=== PATIENT | female | born 1980 | race African-American/Black ===

== ENCOUNTER 2019-12-22 13:09 | Emergency (ER) | payer SELFPAY ==
[~2019-12-22] VITALS: Ht 160 cm; Wt 85.0 kg
[2019-12-22 13:24] VITALS: BP 156/79
[2019-12-22] MEDS ORDERED: METF-414 PO (13:33)
== END 2019-12-22 14:07 | disposition home or self-care (01) ==
LOC: ER 13:09
DX: R73.9 Hyperglycemia, unspecified (principal); F12.10 Cannabis abuse, uncomplicated; Z98.890 Other specified postprocedural states; Z91.040 Latex allergy status; Z91.041 Radiographic dye allergy status
CPT/HCPCS: 82962; 99281; 99282

== ENCOUNTER 2021-03-05 15:10 | Inpatient (IN) | payer OTHER ==
[~2021-03-05] VITALS: Ht 162.6 cm; Wt 84.4 kg
[~2021-03-05 15:10] MED LIST: METF-414 PO
[2021-03-05] MEDS ORDERED: SODIUM CHLORIDE 0.9% 1,000 ML IV ONE (21:00)
[2021-03-05 21:11] LABS: CLARITY URINE CLEAR (CLEAR); COLOR URINE YELLOW (YELLOW); KETONES URINE 1+ (NEGATIVE); LEUKOCYTE ESTERASE URINE NEGATIVE (NEGATIVE); NITRITE URINE NEGATIVE (NEGATIVE); OCCULT BLOOD URINE 3+ (NEGATIVE); PH URINE 5.5 (4.5-8.0); PROTEIN URINE NEGATIVE (NEGATIVE); SPECIFIC GRAVITY URINE 1.029 (1.005-1.030); UROBILINOGEN URINE 0.2 E.U./dL (0.2-1.0)
[2021-03-05 22:13] LABS: BASOPHILS % 1.1 % (0.0-2.0); EOSINOPHILS % 0.4 % (0.0-5.0); HEMATOCRIT. 41.8 % (36.0-48.0); HEMOGLOBIN. 14.5 g/dL (12.0-16.0); LYMPHOCYTES % 34.5 % (20.0-50.0); MEAN CORPUSCULAR HEMOGLOBIN 28.5 pg (28.0-32.0); MEAN CORPUSCULAR VOLUME 82.3 fL (81.0-99.0); MEAN PLATELET VOLUME 9.4 fl (7.4-10.4); MONOCYTES % 4.6 % (2.0-8.0); NEUTROPHILS % 59.4 % (40.0-76.0); PLATELET 311 x1000/uL (130-400); RED BLOOD CELL COUNT 5.08 mill/uL (4.2-5.4); RED CELL DISTRIBUTION WIDTH 13.6 % (11.6-14.6)
[2021-03-05 22:15] LABS: CHLORIDE 103 mEq/L (98-107)
[2021-03-05 22:23] LABS: BETA HYDROXYBUTYRATE 0.9 mMol/L (0.0-0.3)
[2021-03-05] MEDS ORDERED: INSULIN REGULAR (HUMULIN R) UD 100 UNITS/ML SYR SUBCUT NR (22:30)
[2021-03-05] MEDS ORDERED: INSULIN REGULAR (HUMULIN R) 300UNITS/3ML VIAL SUBCUT NR (23:00)
[2021-03-06 00:53] LABS: HCG SCREEN NEGATIVE
[2021-03-06] MEDS ORDERED: METF-414 MT (05:26)
[2021-03-06] MEDS ORDERED: SERT25TA MT (05:26)
[2021-03-06 05:28] VITALS: BP 135/90
[2021-03-06] MEDS ORDERED: DEXTROSE 50% WATER 50ML SYRINGE IV PRN (06:30)
[2021-03-06] MEDS: BLOOD SUGAR DIAGNOSTIC STRIP TEST SCH ×4 (07:32→21:26)
[2021-03-06] MEDS: INSULIN LISPRO 100 UNITS/ML SUBCUT SCH ×4 (07:42→22:01)
[2021-03-06] MEDS ORDERED: METFORMIN HCL 500MG TABLET PO SCH (07:50)
[2021-03-06 08:00] VITALS: BP 113/73
[2021-03-06] MEDS: BENAZEPRIL 10MG TABLET PO SCH (09:26)
[2021-03-06] MEDS: INSULIN GLARGINE UD 100 UNITS/ML SYR SUBCUT SCH ×2 (10:56→22:01)
[2021-03-06 11:36] LABS: CHLORIDE 108 mEq/L (98-107)
[2021-03-06 11:48] LABS: BASOPHILS % 0.5 % (0.0-2.0); EOSINOPHILS % 0.8 % (0.0-5.0); HEMATOCRIT. 40.1 % (36.0-48.0); HEMOGLOBIN. 13.7 g/dL (12.0-16.0); LDL CHOLESTEROL 141 mg/dL (5-100); LYMPHOCYTES % 33.2 % (20.0-50.0); MEAN CORPUSCULAR HEMOGLOBIN 28.5 pg (28.0-32.0); MEAN CORPUSCULAR VOLUME 83.6 fL (81.0-99.0); MEAN PLATELET VOLUME 9.6 fl (7.4-10.4); NEUTROPHILS % 60.5 % (40.0-76.0); PLATELET 288 x1000/uL (130-400); RED CELL DISTRIBUTION WIDTH 13.6 % (11.6-14.6)
[2021-03-06 11:53] LABS: HDL CHOLESTEROL 29 mg/dL (40-59)
[2021-03-06] MEDS ORDERED: POTASSIUM CHLORIDE 20MEQ TABLET SR PO NR (13:45)
[2021-03-06] MEDS: ACETAMINOPHEN 325MG TABLET PO PRN ×2 (13:56→21:58)
[2021-03-06] MEDS: SERTRALINE HCL 25MG TABLET PO SCH (16:27)
[2021-03-06 18:00] VITALS: BP 111/61
[2021-03-06] MEDS: METFORMIN HCL 500MG TABLET PO SCH (18:14)
[2021-03-06] MEDS: PSYLLIUM SEED PACKET PO SCH (18:15)
[2021-03-06] MEDS ORDERED: ATORVASTATIN CALCIUM 20MG TABLET PO SCH ×2 (21:00)
[2021-03-07 00:16] VITALS: BP 115/67
[2021-03-07] MEDS: SODIUM CHLORIDE 0.9% 1,000 ML IV SCH ×2 (03:04→12:46)
[2021-03-07 04:00] VITALS: BP 114/68
[2021-03-07] MEDS: BLOOD SUGAR DIAGNOSTIC STRIP TEST SCH ×3 (06:28→17:13)
[2021-03-07 07:31] LABS: CHLORIDE 107 mEq/L (98-107)
[2021-03-07 08:00] VITALS: BP 108/72
[2021-03-07] MEDS: METFORMIN HCL 500MG TABLET PO SCH ×2 (08:49→17:19)
[2021-03-07] MEDS: PSYLLIUM SEED PACKET PO SCH ×2 (08:49→17:19)
[2021-03-07] MEDS: INSULIN LISPRO 100 UNITS/ML SUBCUT SCH ×3 (08:50→17:20)
[2021-03-07] MEDS: SERTRALINE HCL 25MG TABLET PO SCH (08:52)
[2021-03-07] MEDS: BENAZEPRIL 10MG TABLET PO SCH (09:00)
[2021-03-07] MEDS: ACETAMINOPHEN 325MG TABLET PO PRN (09:08)
[2021-03-07] MEDS ORDERED: INSU100I28 SQ (09:45)
[2021-03-07] MEDS ORDERED: ATOR20TA MT (09:46)
[2021-03-07] MEDS: INSULIN GLARGINE UD 100 UNITS/ML SYR SUBCUT SCH (10:30)
[2021-03-07] MEDS ORDERED: DEXTROSE 50% WATER 50ML SYRINGE IV PRN (10:45)
[2021-03-07 12:00] VITALS: BP 120/82
[2021-03-07] MEDS ORDERED: INSULIN LISPRO 100 UNITS/ML SUBCUT SCH (12:20)
[2021-03-07] MEDS: INSULIN LISPRO (LOW DOSE) 100 UNITS/ML SUBCUT SCH ×2 (12:23→17:14)
[2021-03-07 16:00] VITALS: BP 114/80
[2021-03-07 16:27] VITALS: BP 114/80
[2021-03-07] MEDS ORDERED: INSULIN GLARGINE UD 100 UNITS/ML SYR SUBCUT SCH (22:00)
== END 2021-03-07 17:40 | disposition home or self-care (01) | DRG 639 ==
LOC: ER 15:25 → MICUSO 03-06 00:19 → EDBEDREQDT 03-06 00:29 → EDBEDREQ 03-06 00:29 → EDBEDREQTM 03-06 00:29 → 6EST 03-06 04:31
PROVIDERS: ADMIT Internal Medicine; ATTEND Internal Medicine
DX: E11.10 Type 2 diabetes mellitus with ketoacidosis without coma (principal); E66.9 Obesity, unspecified; E78.5 Hyperlipidemia, unspecified; R31.9 Hematuria, unspecified; E83.52 Hypercalcemia; R19.7 Diarrhea, unspecified; F41.9 Anxiety disorder, unspecified; F32.9 Major depressive disorder, single episode, unspecified; Z79.4 Long term (current) use of insulin; Z82.49 Family history of ischemic heart disease and other diseases of the circulatory system; Z83.3 Family history of diabetes mellitus; Z86.32 Personal history of gestational diabetes; Z98.51 Tubal ligation status; Z88.1 Allergy status to other antibiotic agents; Z91.041 Radiographic dye allergy status; Z91.040 Latex allergy status; Z71.3 Dietary counseling and surveillance; Z68.31 Body mass index [BMI] 31.0-31.9, adult; Z86.19 Personal history of other infectious and parasitic diseases
CPT/HCPCS: 36415; 80048; 80053; 80061; 81003; 82010; 82962; 83036; 84703; 85025; 99285; J1815; J7030; J7040

== ENCOUNTER 2021-08-13 05:36 | Inpatient (IN) | payer OTHER ==
[~2021-08-13] VITALS: Ht 157.5 cm; Wt 88.5 kg
[~2021-08-13 05:36] MED LIST changes: +ATOR20TA MT; +INSU100I28 SQ; +METF-414 MT; +SERT25TA MT
[2021-08-13] MEDS ORDERED: MORPHINE SULFATE 4 MG/ML CPJ (NOT FOR IM USE) IV ONE ×3 (06:45→12:45)
[2021-08-13 06:54] LABS: BASOPHILS % 0.4 % (0.0-2.0); EOSINOPHILS % 0.6 % (0.0-5.0); HEMATOCRIT. 38.2 % (36.0-48.0); LYMPHOCYTES % 14.3 % (20.0-50.0); MEAN CORPUSCULAR HEMOGLOBIN 28.9 pg (28.0-32.0); MEAN PLATELET VOLUME 8.6 fl (7.4-10.4); MONOCYTES % 2.5 % (2.0-8.0); NEUTROPHILS % 82.2 % (40.0-76.0); PLATELET 281 x1000/uL (130-400); RED BLOOD CELL COUNT 4.49 mill/uL (4.2-5.4); RED CELL DISTRIBUTION WIDTH 13.2 % (11.6-14.6)
[2021-08-13 07:09] LABS: CHLORIDE 105 mEq/L (98-107)
[2021-08-13 07:16] LABS: HCG SCREEN NEGATIVE
[2021-08-13 13:30] VITALS: BP 135/81
[2021-08-13 15:18] VITALS: BP 135/81
[2021-08-13] MEDS ORDERED: INSU100I28 SQ (15:41)
[2021-08-13] MEDS ORDERED: SERT25TA PO (15:42)
[2021-08-13] MEDS ORDERED: IBUP-2029 PO (15:42)
[2021-08-13] MEDS ORDERED: DULA0.75 SQ (15:42)
[2021-08-13] MEDS ORDERED: FLUT9.9S NS (15:45)
[2021-08-13 16:00] VITALS: BP 124/74
[2021-08-13] MEDS ORDERED: ZOLPIDEM TARTRATE 5MG TABLET PO PRN (17:30)
[2021-08-13] MEDS ORDERED: MAGNESIUM/ALUMINUM HYDROXIDE/SIMETHICONE 30ML UDC PO PRN (17:30)
[2021-08-13] MEDS ORDERED: DIPHENHYDRAMINE 50MG/ML VIAL IV PRN (17:30)
[2021-08-13] MEDS ORDERED: ACETAMINOPHEN 325MG TABLET PO PRN (17:30)
[2021-08-13] MEDS ORDERED: CLONIDINE 0.1MG TABLET PO PRN (17:30)
[2021-08-13] MEDS ORDERED: DEXTROSE 50% WATER 50ML SYRINGE IV PRN (17:30)
[2021-08-13] MEDS: BLOOD SUGAR DIAGNOSTIC STRIP TEST SCH ×2 (18:09→20:46)
[2021-08-13] MEDS: INSULIN LISPRO 100 UNITS/ML SUBCUT SCH ×2 (18:09→20:45)
[2021-08-13] MEDS: PANTOPRAZOLE SODIUM 40 MG/VIAL IV SCH (18:09)
[2021-08-13] MEDS: KETOROLAC 30MG/ML VIAL IV PRN (18:10)
[2021-08-13] MEDS: SODIUM CHLORIDE 0.9% 1,000 ML IV SCH (18:15)
[2021-08-13 20:00] VITALS: BP 120/70
[2021-08-13] MEDS ORDERED: BLOOD SUGAR DIAGNOSTIC STRIP TEST SCH (21:00)
[2021-08-13] MEDS: ACETAMINOPHEN 325MG TABLET PO PRN (21:15)
[2021-08-13] MEDS: ONDANSETRON HCL 4MG/2ML INJ IV PRN (21:23)
[2021-08-13] MEDS ORDERED: NALOXONE HCL 0.4 MG/ML 1ML VIAL IV PRN (22:00)
[2021-08-13] MEDS: MORPHINE SULFATE 2 MG/ML CPJ (NOT FOR IM USE) IV PRN (22:02)
[2021-08-14] VITALS: BP 122/71
[2021-08-14 01:53] LABS: CLARITY URINE CLEAR (CLEAR); COLOR URINE DARK YELLOW (YELLOW); KETONES URINE NEGATIVE (NEGATIVE); LEUKOCYTE ESTERASE URINE TRACE (NEGATIVE); NITRITE URINE NEGATIVE (NEGATIVE); OCCULT BLOOD URINE 3+ (NEGATIVE); PH URINE 5.5 (4.5-8.0); PROTEIN URINE 1+ (NEGATIVE); SPECIFIC GRAVITY URINE 1.018 (1.005-1.030)
[2021-08-14 01:58] LABS: UCG SCREEN NEGATIVE
[2021-08-14 02:04] LABS: *AMPHETAMINES SCREEN URINE NEGATIVE (NEGATIVE); *BARBITURATES SCREEN URINE NEGATIVE (NEGATIVE); *BENZODIAZEPINES SCREEN URINE NEGATIVE (NEGATIVE); *COCAINE SCREEN URINE NEGATIVE (NEGATIVE); METHADONE URINE SCREEN NEGATIVE (NEGATIVE)
[2021-08-14 02:05] LABS: PHENCYCLIDINE URINE SCREEN NEGATIVE (NEGATIVE)
[2021-08-14 02:39] LABS: CANNABINOID URINE SCREEN PRESUMTIVE POSITIVE (NEGATIVE); OPIATES URINE SCREEN PRESUMTIVE POSITIVE (NEGATIVE)
[2021-08-14 04:00] VITALS: BP 120/72
[2021-08-14] MEDS: MORPHINE SULFATE 2 MG/ML CPJ (NOT FOR IM USE) IV PRN ×2 (05:02→15:38)
[2021-08-14] MEDS: ONDANSETRON HCL 4MG/2ML INJ IV PRN ×2 (05:09→21:21)
[2021-08-14] MEDS: SODIUM CHLORIDE 0.9% 1,000 ML IV SCH ×3 (06:32→21:21)
[2021-08-14] MEDS: BLOOD SUGAR DIAGNOSTIC STRIP TEST SCH ×4 (07:20→21:00)
[2021-08-14] MEDS: INSULIN LISPRO 100 UNITS/ML SUBCUT SCH ×4 (07:50→21:00)
[2021-08-14 08:00] VITALS: BP 119/86
[2021-08-14] MEDS: ACETAMINOPHEN 325MG TABLET PO PRN ×2 (08:46→21:20)
[2021-08-14] MEDS: PANTOPRAZOLE SODIUM 40 MG/VIAL IV SCH (08:46)
[2021-08-14 10:22] LABS: CHLORIDE 106 mEq/L (98-107)
[2021-08-14 10:25] LABS: BASOPHILS % 0.7 % (0.0-2.0); EOSINOPHILS % 0.6 % (0.0-5.0); HEMATOCRIT. 38.5 % (36.0-48.0); LYMPHOCYTES % 21.1 % (20.0-50.0); MEAN CORPUSCULAR HEMOGLOBIN 28.9 pg (28.0-32.0); MEAN CORPUSCULAR VOLUME 85.7 fL (81.0-99.0); MEAN PLATELET VOLUME 9.5 fl (7.4-10.4); MONOCYTES % 3.6 % (2.0-8.0); PLATELET 276 x1000/uL (130-400); RED CELL DISTRIBUTION WIDTH 13.2 % (11.6-14.6)
[2021-08-14 12:00] VITALS: BP 122/75
[2021-08-14 16:00] VITALS: BP 120/81
[2021-08-14 17:41] LABS: AMYLASE 48 IU/L (25-115)
[2021-08-14 20:00] VITALS: BP 116/71
[2021-08-15] VITALS: BP 129/76
[2021-08-15] MEDS: MORPHINE SULFATE 2 MG/ML CPJ (NOT FOR IM USE) IV PRN ×3 (00:23→22:02)
[2021-08-15 04:00] VITALS: BP 114/74
[2021-08-15 07:24] LABS: BASOPHILS % 0.6 % (0.0-2.0); EOSINOPHILS % 1.4 % (0.0-5.0); HEMATOCRIT. 34.8 % (36.0-48.0); HEMOGLOBIN. 12.1 g/dL (12.0-16.0); LYMPHOCYTES % 24.2 % (20.0-50.0); MEAN CORPUSCULAR HEMOGLOBIN 29.7 pg (28.0-32.0); MEAN PLATELET VOLUME 9.3 fl (7.4-10.4); MONOCYTES % 4.1 % (2.0-8.0); NEUTROPHILS % 69.7 % (40.0-76.0); PLATELET 244 x1000/uL (130-400); RED BLOOD CELL COUNT 4.09 mill/uL (4.2-5.4); RED CELL DISTRIBUTION WIDTH 13.6 % (11.6-14.6)
[2021-08-15 07:43] LABS: CHLORIDE 109 mEq/L (98-107)
[2021-08-15] MEDS: INSULIN LISPRO 100 UNITS/ML SUBCUT SCH ×4 (07:50→21:50)
[2021-08-15] MEDS: BLOOD SUGAR DIAGNOSTIC STRIP TEST SCH ×4 (07:54→21:41)
[2021-08-15 07:59] LABS: AMYLASE 45 IU/L (25-115)
[2021-08-15 08:00] VITALS: BP 113/72
[2021-08-15 08:03] LABS: HEPATITIS B SURFACE ANTIGEN NEGATIVE
[2021-08-15] MEDS: PANTOPRAZOLE SODIUM 40 MG/VIAL IV SCH (08:46)
[2021-08-15] MEDS: SODIUM CHLORIDE 0.9% 1,000 ML IV SCH ×2 (08:52→20:15)
[2021-08-15] MEDS: ONDANSETRON HCL 4MG/2ML INJ IV PRN ×3 (08:58→22:23)
[2021-08-15] MEDS: ACETAMINOPHEN 325MG TABLET PO PRN (11:44)
[2021-08-15 12:00] VITALS: BP 113/70
[2021-08-15 16:00] VITALS: BP 124/85
[2021-08-15 20:00] VITALS: BP 115/66
[2021-08-16] MEDS: SODIUM CHLORIDE 0.9% 1,000 ML IV SCH ×2 (06:15→16:15)
[2021-08-16 07:02] LABS: BASOPHILS % 0.8 % (0.0-2.0); EOSINOPHILS % 1.6 % (0.0-5.0); HEMATOCRIT. 35.1 % (36.0-48.0); HEMOGLOBIN. 12.2 g/dL (12.0-16.0); MEAN CORPUSCULAR HEMOGLOBIN 29.6 pg (28.0-32.0); MEAN CORPUSCULAR VOLUME 85.1 fL (81.0-99.0); MEAN PLATELET VOLUME 9.1 fl (7.4-10.4); MONOCYTES % 6.5 % (2.0-8.0); NEUTROPHILS % 55.1 % (40.0-76.0); PLATELET 249 x1000/uL (130-400); RED BLOOD CELL COUNT 4.12 mill/uL (4.2-5.4); RED CELL DISTRIBUTION WIDTH 13.5 % (11.6-14.6)
[2021-08-16 07:07] LABS: CHLORIDE 109 mEq/L (98-107)
[2021-08-16 07:14] LABS: AMYLASE 40 IU/L (25-115)
[2021-08-16] MEDS: KETOROLAC 30MG/ML VIAL IV PRN ×3 (07:30→21:03)
[2021-08-16] MEDS: INSULIN LISPRO 100 UNITS/ML SUBCUT SCH ×4 (07:50→21:01)
[2021-08-16 08:00] VITALS: BP 124/79
[2021-08-16] MEDS: BLOOD SUGAR DIAGNOSTIC STRIP TEST SCH ×4 (08:11→21:01)
[2021-08-16] MEDS: PANTOPRAZOLE SODIUM 40 MG/VIAL IV SCH (08:51)
[2021-08-16] MEDS: ONDANSETRON HCL 4MG/2ML INJ IV PRN ×3 (08:51→21:01)
[2021-08-16] MEDS: ACETAMINOPHEN 325MG TABLET PO PRN (11:54)
[2021-08-16 12:00] VITALS: BP 126/78
[2021-08-16 16:00] VITALS: BP 131/86
[2021-08-16] MEDS ORDERED: PANTOPRAZOLE SODIUM 40 MG/VIAL IV SCH ×2 (17:00→18:30)
[2021-08-16] MEDS: METOCLOPRAMIDE HCL 10MG/2ML VIAL IV SCH (23:32)
[2021-08-17] VITALS: BP 140/81
[2021-08-17 04:00] VITALS: BP 129/80
[2021-08-17] MEDS: SODIUM CHLORIDE 0.9% 1,000 ML IV SCH ×3 (04:18→23:21)
[2021-08-17] MEDS: KETOROLAC 30MG/ML VIAL IV PRN ×3 (04:21→20:42)
[2021-08-17] MEDS: ONDANSETRON HCL 4MG/2ML INJ IV PRN ×4 (04:21→23:27)
[2021-08-17] MEDS: PANTOPRAZOLE SODIUM 40 MG/VIAL IV SCH ×2 (05:30→17:48)
[2021-08-17] MEDS: METOCLOPRAMIDE HCL 10MG/2ML VIAL IV SCH ×4 (05:30→23:21)
[2021-08-17] MEDS: BLOOD SUGAR DIAGNOSTIC STRIP TEST SCH ×4 (06:37→20:42)
[2021-08-17] MEDS: SUCRALFATE 1G TABLET PO SCH ×4 (06:37→20:41)
[2021-08-17] MEDS: INSULIN LISPRO 100 UNITS/ML SUBCUT SCH ×4 (07:50→20:41)
[2021-08-17 08:00] VITALS: BP 137/80
[2021-08-17 08:19] LABS: BASOPHILS % 0.5 % (0.0-2.0); EOSINOPHILS % 0.8 % (0.0-5.0); HEMATOCRIT. 34.6 % (36.0-48.0); HEMOGLOBIN. 12.1 g/dL (12.0-16.0); LYMPHOCYTES % 19.8 % (20.0-50.0); MEAN CORPUSCULAR HEMOGLOBIN 29.8 pg (28.0-32.0); MEAN CORPUSCULAR VOLUME 85.3 fL (81.0-99.0); MEAN PLATELET VOLUME 9.5 fl (7.4-10.4); NEUTROPHILS % 73.9 % (40.0-76.0); PLATELET 256 x1000/uL (130-400); RED BLOOD CELL COUNT 4.05 mill/uL (4.2-5.4); RED CELL DISTRIBUTION WIDTH 13.4 % (11.6-14.6)
[2021-08-17 08:41] LABS: CHLORIDE 109 mEq/L (98-107)
[2021-08-17 08:51] LABS: AMYLASE 30 IU/L (25-115)
[2021-08-17] MEDS: ACETAMINOPHEN 325MG TABLET PO PRN (11:08)
[2021-08-17 12:00] VITALS: BP 123/75
[2021-08-17] MEDS ORDERED: KCL 20MEQ/100ML PREMIX 100 ML IV SCH (14:00)
[2021-08-17] MEDS ORDERED: MAGNESIUM 2 G PREMIX 50 ML IV SCH (14:00)
[2021-08-17 16:00] VITALS: BP 139/84
[2021-08-17] MEDS: MORPHINE SULFATE 2 MG/ML CPJ (NOT FOR IM USE) IV PRN (17:10)
[2021-08-17] MEDS ORDERED: POTASSIUM CHLORIDE 20MEQ TABLET SR PO NR (17:45)
[2021-08-17 20:00] VITALS: BP 126/76
[2021-08-18] VITALS: BP 111/73
[2021-08-18 04:00] VITALS: BP 125/80
[2021-08-18] MEDS: PANTOPRAZOLE SODIUM 40 MG/VIAL IV SCH ×2 (06:20→17:03)
[2021-08-18] MEDS: METOCLOPRAMIDE HCL 10MG/2ML VIAL IV SCH ×3 (06:21→17:03)
[2021-08-18] MEDS: SUCRALFATE 1G TABLET PO SCH ×4 (06:22→22:52)
[2021-08-18] MEDS: BLOOD SUGAR DIAGNOSTIC STRIP TEST SCH ×4 (06:22→21:00)
[2021-08-18 07:08] LABS: BASOPHILS % 0.7 % (0.0-2.0); EOSINOPHILS % 1.3 % (0.0-5.0); LYMPHOCYTES % 36.4 % (20.0-50.0); MEAN CORPUSCULAR HEMOGLOBIN 29.3 pg (28.0-32.0); MEAN CORPUSCULAR VOLUME 85.2 fL (81.0-99.0); MEAN PLATELET VOLUME 9.1 fl (7.4-10.4); MONOCYTES % 7.4 % (2.0-8.0); NEUTROPHILS % 54.2 % (40.0-76.0); PLATELET 256 x1000/uL (130-400); RED BLOOD CELL COUNT 4.11 mill/uL (4.2-5.4); RED CELL DISTRIBUTION WIDTH 13.5 % (11.6-14.6)
[2021-08-18] MEDS: INSULIN LISPRO 100 UNITS/ML SUBCUT SCH ×4 (07:50→21:00)
[2021-08-18 08:00] VITALS: BP 118/63
[2021-08-18] MEDS: SODIUM CHLORIDE 0.9% 1,000 ML IV SCH ×2 (08:15→17:22)
[2021-08-18 08:53] LABS: CHLORIDE 111 mEq/L (98-107)
[2021-08-18 09:12] LABS: AMYLASE 31 IU/L (25-115)
[2021-08-18 12:00] VITALS: BP 127/71
[2021-08-18 13:06] LABS: ANTI-NUCLEAR ANTIBODIES DIRECT Positive (Negative)
[2021-08-18] MEDS ORDERED: HYDROMORPHONE HCL/PF 2MG/ML CPJ IV PRN (14:00)
[2021-08-18] MEDS ORDERED: KETOROLAC 30MG/ML VIAL IV PRN (14:00)
[2021-08-18 16:00] VITALS: BP 120/73
[2021-08-18 20:00] VITALS: BP 131/83
[2021-08-19] VITALS: BP 120/73
[2021-08-19] MEDS: METOCLOPRAMIDE HCL 10MG/2ML VIAL IV SCH ×5 (00:41→22:55)
[2021-08-19 04:00] VITALS: BP 105/53
[2021-08-19] MEDS: SODIUM CHLORIDE 0.9% 1,000 ML IV SCH ×3 (04:15→23:56)
[2021-08-19] MEDS: PANTOPRAZOLE SODIUM 40 MG/VIAL IV SCH ×2 (06:08→17:23)
[2021-08-19 06:41] LABS: CHLORIDE 109 mEq/L (98-107)
[2021-08-19 06:57] LABS: AMYLASE 39 IU/L (25-115)
[2021-08-19 07:03] LABS: BASOPHILS % 0.7 % (0.0-2.0); EOSINOPHILS % 1.2 % (0.0-5.0); HEMATOCRIT. 34.5 % (36.0-48.0); HEMOGLOBIN. 11.8 g/dL (12.0-16.0); LYMPHOCYTES % 37.2 % (20.0-50.0); MEAN CORPUSCULAR HEMOGLOBIN 28.9 pg (28.0-32.0); MEAN CORPUSCULAR VOLUME 84.2 fL (81.0-99.0); MEAN PLATELET VOLUME 9.3 fl (7.4-10.4); MONOCYTES % 6.4 % (2.0-8.0); NEUTROPHILS % 54.5 % (40.0-76.0); PLATELET 248 x1000/uL (130-400); RED BLOOD CELL COUNT 4.09 mill/uL (4.2-5.4); RED CELL DISTRIBUTION WIDTH 13.6 % (11.6-14.6)
[2021-08-19] MEDS: INSULIN LISPRO 100 UNITS/ML SUBCUT SCH ×4 (07:49→21:00)
[2021-08-19] MEDS: BLOOD SUGAR DIAGNOSTIC STRIP TEST SCH ×4 (07:49→21:00)
[2021-08-19 08:00] VITALS: BP 130/76
[2021-08-19] MEDS: SUCRALFATE 1G TABLET PO SCH ×4 (08:34→22:55)
[2021-08-19 12:00] VITALS: BP 146/85
[2021-08-19 13:11] LABS: MITOCHONDRIAL M2 AB <20.0 Units (0.0-20.0)
[2021-08-19 16:00] VITALS: BP 123/92
[2021-08-19] MEDS: HYDROMORPHONE HCL/PF 2MG/ML CPJ IV PRN ×2 (17:35→23:50)
[2021-08-19 20:00] VITALS: BP 131/68
[2021-08-19] MEDS ORDERED: PROCHLORPERAZINE 10MG/2ML VIAL IV PRN (20:00)
[2021-08-20 04:00] VITALS: BP 128/76
[2021-08-20] MEDS: BLOOD SUGAR DIAGNOSTIC STRIP TEST SCH ×4 (06:34→21:00)
[2021-08-20] MEDS: METOCLOPRAMIDE HCL 10MG/2ML VIAL IV SCH ×3 (06:35→18:30)
[2021-08-20] MEDS: INSULIN LISPRO 100 UNITS/ML SUBCUT SCH ×4 (07:50→22:44)
[2021-08-20 08:00] VITALS: BP 137/83
[2021-08-20] MEDS ORDERED: FAMOTIDINE 20MG/2ML VIAL IV SCH (09:00)
[2021-08-20 09:30] LABS: CHLORIDE 106 mEq/L (98-107)
[2021-08-20] MEDS: SUCRALFATE 1G TABLET PO SCH ×4 (09:31→21:59)
[2021-08-20 09:35] LABS: AMYLASE 36 IU/L (25-115)
[2021-08-20 09:38] LABS: BASOPHILS % 0.5 % (0.0-2.0); EOSINOPHILS % 0.2 % (0.0-5.0); HEMATOCRIT. 36.7 % (36.0-48.0); HEMOGLOBIN. 12.3 g/dL (12.0-16.0); LYMPHOCYTES % 26.1 % (20.0-50.0); MEAN CORPUSCULAR HEMOGLOBIN 28.4 pg (28.0-32.0); MEAN CORPUSCULAR VOLUME 84.7 fL (81.0-99.0); MEAN PLATELET VOLUME 8.9 fl (7.4-10.4); MONOCYTES % 5.6 % (2.0-8.0); NEUTROPHILS % 67.6 % (40.0-76.0); PLATELET 272 x1000/uL (130-400); RED BLOOD CELL COUNT 4.34 mill/uL (4.2-5.4); RED CELL DISTRIBUTION WIDTH 13.5 % (11.6-14.6)
[2021-08-20] MEDS: SODIUM CHLORIDE 0.9% 1,000 ML IV SCH ×2 (10:15→22:51)
[2021-08-20 12:00] VITALS: BP 137/83
[2021-08-20] MEDS: ONDANSETRON HCL 4MG/2ML INJ IV PRN ×2 (13:40→18:32)
[2021-08-20] MEDS: HYDROMORPHONE HCL/PF 2MG/ML CPJ IV PRN ×3 (13:46→22:52)
[2021-08-20] MEDS ORDERED: POTASSIUM CHLORIDE 20MEQ TABLET SR PO NR (14:00)
[2021-08-20] MEDS ORDERED: POLYETHYLENE GLYCOL 3350 (17GM) 1 DOSE PACK PO SCH (14:00)
[2021-08-20] MEDS: DOCUSATE SODIUM 100MG CAPSULE PO SCH (18:27)
[2021-08-20 20:00] VITALS: BP 128/79
[2021-08-20] MEDS: PANTOPRAZOLE SODIUM 40 MG/VIAL IV SCH (21:59)
[2021-08-21] VITALS: BP 115/57
[2021-08-21] MEDS: METOCLOPRAMIDE HCL 10MG/2ML VIAL IV SCH ×4 (01:09→17:04)
[2021-08-21] MEDS: ONDANSETRON HCL 4MG/2ML INJ IV PRN (01:09)
[2021-08-21 04:00] VITALS: BP 132/79
[2021-08-21] MEDS: SODIUM CHLORIDE 0.9% 1,000 ML IV SCH ×2 (06:40→16:15)
[2021-08-21] MEDS: BLOOD SUGAR DIAGNOSTIC STRIP TEST SCH ×4 (06:40→20:42)
[2021-08-21] MEDS: SUCRALFATE 1G TABLET PO SCH ×4 (06:40→22:10)
[2021-08-21 06:41] LABS: BASOPHILS % 0.7 % (0.0-2.0); HEMATOCRIT. 34.2 % (36.0-48.0); HEMOGLOBIN. 12.1 g/dL (12.0-16.0); LYMPHOCYTES % 34.2 % (20.0-50.0); MEAN CORPUSCULAR HEMOGLOBIN 29.6 pg (28.0-32.0); MEAN CORPUSCULAR VOLUME 83.6 fL (81.0-99.0); MEAN PLATELET VOLUME 9.2 fl (7.4-10.4); MONOCYTES % 7.1 % (2.0-8.0); PLATELET 244 x1000/uL (130-400); RED BLOOD CELL COUNT 4.08 mill/uL (4.2-5.4); RED CELL DISTRIBUTION WIDTH 13.7 % (11.6-14.6)
[2021-08-21 06:50] LABS: CHLORIDE 108 mEq/L (98-107)
[2021-08-21 06:51] LABS: PARTIAL THROMBOPLASTIN TIME 24.5 sec (23.4-31.0); PROTHROMBIN TIME 11.1 sec (9.6-11.0)
[2021-08-21] MEDS: INSULIN LISPRO 100 UNITS/ML SUBCUT SCH ×4 (07:50→21:06)
[2021-08-21 08:00] VITALS: BP 126/77
[2021-08-21] MEDS: DOCUSATE SODIUM 100MG CAPSULE PO SCH ×2 (09:00→17:06)
[2021-08-21] MEDS: PANTOPRAZOLE SODIUM 40 MG/VIAL IV SCH (11:15)
[2021-08-21 12:00] VITALS: BP 126/77
[2021-08-21] MEDS ORDERED: FENTANYL CITRATE/PF 50MCG/ML 2ML VIAL ONE (14:17)
[2021-08-21] MEDS ORDERED: MIDAZOLAM HCL 5 MG/5 ML VIAL IV PRN (14:17)
[2021-08-21] MEDS ORDERED: MIDAZOLAM HCL 5 MG/5 ML VIAL ONE (14:17)
[2021-08-21] MEDS ORDERED: FENTANYL CITRATE/PF 50MCG/ML 2ML VIAL IV PRN (14:18)
[2021-08-21 16:00] VITALS: BP 129/84
[2021-08-21] MEDS ORDERED: POTASSIUM CHLORIDE 20MEQ TABLET SR PO NR (16:00)
[2021-08-21 20:00] VITALS: BP 116/75
[2021-08-22] VITALS: BP 121/69
[2021-08-22] MEDS: METOCLOPRAMIDE HCL 10MG/2ML VIAL IV SCH ×3 (01:01→12:21)
[2021-08-22] MEDS: SODIUM CHLORIDE 0.9% 1,000 ML IV SCH (02:15)
[2021-08-22 04:00] VITALS: BP 100/49
[2021-08-22] MEDS: BLOOD SUGAR DIAGNOSTIC STRIP TEST SCH ×2 (06:43→12:49)
[2021-08-22] MEDS: SUCRALFATE 1G TABLET PO SCH ×2 (06:43→12:28)
[2021-08-22] MEDS ORDERED: PANTOPRAZOLE 40MG DR TABLET PO SCH (07:20)
[2021-08-22] MEDS: INSULIN LISPRO 100 UNITS/ML SUBCUT SCH ×2 (08:41→12:50)
[2021-08-22] MEDS: DOCUSATE SODIUM 100MG CAPSULE PO SCH (08:46)
[2021-08-22] MEDS: HYDROMORPHONE HCL/PF 2MG/ML CPJ IV PRN (08:49)
[2021-08-22] MEDS: ONDANSETRON HCL 4MG/2ML INJ IV PRN (14:35)
[2021-08-22 14:59] VITALS: BP 100/49
[2021-08-23] MEDS ORDERED: DOCU-138 MT (02:32)
== END 2021-08-22 15:55 | disposition home or self-care (01) ==
LOC: ER 05:36 → 6EST 11:44 → EDBEDREQTM 11:46 → EDBEDREQ 11:46 → ENRESERV 12:57
PROVIDERS: ADMIT Internal Medicine; ATTEND Internal Medicine
PROC: 0DB78ZX Excision of Stomach, Pylorus, Via Natural or Artificial Opening Endoscopic, Diagnostic (ICD-10-PCS; principal; 2021-08-21)
DX: K83.1 Obstruction of bile duct (principal); R65.10 Systemic inflammatory response syndrome (SIRS) of non-infectious origin without acute organ dysfunction; K75.89 Other specified inflammatory liver diseases; R11.2 Nausea with vomiting, unspecified; K76.0 Fatty (change of) liver, not elsewhere classified; R10.11 Right upper quadrant pain; E11.9 Type 2 diabetes mellitus without complications; K42.9 Umbilical hernia without obstruction or gangrene; F41.9 Anxiety disorder, unspecified; F12.90 Cannabis use, unspecified, uncomplicated; R74.01 Elevation of levels of liver transaminase levels; Z20.822 Contact with and (suspected) exposure to COVID-19; N39.0 Urinary tract infection, site not specified; R76.8 Other specified abnormal immunological findings in serum; Z79.4 Long term (current) use of insulin; Z83.3 Family history of diabetes mellitus; Z87.891 Personal history of nicotine dependence; Z90.49 Acquired absence of other specified parts of digestive tract; Z98.51 Tubal ligation status; Z88.1 Allergy status to other antibiotic agents; Z91.041 Radiographic dye allergy status; Z91.018 Allergy to other foods; Z91.010 Allergy to peanuts; Z91.040 Latex allergy status; T39.8X5A Adverse effect of other nonopioid analgesics and antipyretics, not elsewhere classified, initial encounter
CPT/HCPCS: 36415; 74176; 74181; 76700; 80048; 80051; 80053; 80076; 80305; 81003; 81025; 82150; 82248; 82550; 82962; 83516; 83735; 84703; 85025; 86038; 86225; 86705; 86709; 86803; 87015; 87045; 87340; 87426; 87427; 87449; 88305; 88312; 88313; 89055; 99285; C1893; C9113; J1170; J1815; J1885; J2250; J2270; J2405; J2765; J3010; J3475; J3480; J3490; J7030

== ENCOUNTER 2021-08-22 23:57 | Emergency (ER) | payer OTHER ==
[~2021-08-22] VITALS: Ht 165.1 cm; Wt 60.0 kg
[~2021-08-22 23:57] MED LIST changes: +DULA0.75 SQ; +FLUT9.9S NS; +IBUP-2029 PO; +SERT25TA PO
[2021-08-23] MEDS ORDERED: ONDANSETRON 4MG ODT PO STA (00:21)
[2021-08-23] MEDS ORDERED: MAGNESIUM/ALUMINUM HYDROXIDE/SIMETHICONE 30ML UDC PO STA (00:21)
[2021-08-23] MEDS ORDERED: DICYCLOMINE 10 MG/5 ML ORAL SYR PO STA (00:21)
[2021-08-23] MEDS ORDERED: VISCOUS LIDOCAINE 2% 15 ML UDC PO STA (00:21)
[2021-08-23] MEDS ORDERED: HALOPERIDOL LACTATE 5MG/ML VIAL IM ONE ×2 (00:30→02:30)
[2021-08-23 01:05] LABS: CHLORIDE 103 mEq/L (98-107)
[2021-08-23 01:06] LABS: BASOPHILS % 0.4 % (0.0-2.0); EOSINOPHILS % 0.2 % (0.0-5.0); HEMATOCRIT. 38.3 % (36.0-48.0); HEMOGLOBIN. 12.9 g/dL (12.0-16.0); LYMPHOCYTES % 16.1 % (20.0-50.0); MEAN CORPUSCULAR HEMOGLOBIN 28.9 pg (28.0-32.0); MEAN CORPUSCULAR VOLUME 85.3 fL (81.0-99.0); MEAN PLATELET VOLUME 9.1 fl (7.4-10.4); NEUTROPHILS % 78.3 % (40.0-76.0); PLATELET 314 x1000/uL (130-400); RED BLOOD CELL COUNT 4.48 mill/uL (4.2-5.4); RED CELL DISTRIBUTION WIDTH 14.3 % (11.6-14.6)
[2021-08-23 01:12] LABS: ETHANOL BLOOD < 10 mg/dL
[2021-08-23 01:15] LABS: BETA HYDROXYBUTYRATE 0.4 mMol/L (0.0-0.3)
[2021-08-23 01:17] LABS: CLARITY URINE CLEAR (CLEAR); COLOR URINE DARK YELLOW (YELLOW); KETONES URINE 1+ (NEGATIVE); LEUKOCYTE ESTERASE URINE NEGATIVE (NEGATIVE); NITRITE URINE NEGATIVE (NEGATIVE); OCCULT BLOOD URINE NEGATIVE (NEGATIVE); PH URINE 7.5 (4.5-8.0); PROTEIN URINE NEGATIVE (NEGATIVE); SPECIFIC GRAVITY URINE 1.013 (1.005-1.030)
[2021-08-23] MEDS ORDERED: POTASSIUM CHLORIDE 20MEQ TABLET SR PO NR (01:30)
[2021-08-23 01:38] LABS: *AMPHETAMINES SCREEN URINE NEGATIVE (NEGATIVE); *BARBITURATES SCREEN URINE NEGATIVE (NEGATIVE); *BENZODIAZEPINES SCREEN URINE NEGATIVE (NEGATIVE); *COCAINE SCREEN URINE NEGATIVE (NEGATIVE)
[2021-08-23 01:39] LABS: METHADONE URINE SCREEN NEGATIVE (NEGATIVE); OPIATES URINE SCREEN NEGATIVE (NEGATIVE); PHENCYCLIDINE URINE SCREEN NEGATIVE (NEGATIVE)
[2021-08-23 01:40] LABS: CANNABINOID URINE SCREEN PRESUMTIVE POSITIVE (NEGATIVE)
[2021-08-23] MEDS ORDERED: NA PHOS,M-B/NA PHOS,DI-BA ENEMA 118ML PR ONE (02:30)
[2021-08-23] MEDS ORDERED: DOCUSATE SODIUM 250MG CAPSULE PO ONE (02:30)
[2021-08-23] MEDS ORDERED: DOCU-138 MT (02:32)
[2021-08-23 02:45] VITALS: BP 150/90
== END 2021-08-23 02:49 | disposition home or self-care (01) ==
LOC: ER 23:57
DX: G89.29 Other chronic pain (principal); R10.9 Unspecified abdominal pain; K59.00 Constipation, unspecified; F12.188 Cannabis abuse with other cannabis-induced disorder; Z71.51 Drug abuse counseling and surveillance of drug abuser; E11.9 Type 2 diabetes mellitus without complications
CPT/HCPCS: 36415; 71045; 80053; 80305; 80320; 81003; 81025; 82010; 82962; 83690; 85025; 96372; 99284; J1630; Q0162; G0480

== ENCOUNTER 2022-03-05 21:38 | Emergency (ER) | payer OTHER ==
[~2022-03-05] VITALS: Ht 157.5 cm; Wt 84.0 kg
[~2022-03-05 21:38] MED LIST changes: +DOCU-138 MT
[2022-03-05 21:45] VITALS: BP 126/73
== END 2022-03-06 01:00 | disposition left against medical advice (07) ==
LOC: ER 21:38
DX: Z53.21 Procedure and treatment not carried out due to patient leaving prior to being seen by health care provider (principal)
CPT/HCPCS: 82962; 93005

== ENCOUNTER 2025-01-22 22:56 | Emergency (ER) | payer SELFPAY ==
[~2025-01-22] VITALS: Ht 157.5 cm; Wt 83.0 kg
[2025-01-22 23:21] VITALS: TEMP 36.7; O2SAT 98
[2025-01-23 01:12] LABS: BASOPHILS % 0.5 % (0.0-2.0); EOSINOPHILS % 0.4 % (0.0-5.0); HEMATOCRIT. 35.9 % (36.0-48.0); HEMOGLOBIN. 12.4 g/dL (12.0-16.0); LYMPHOCYTES % 18.2 % (20.0-50.0); MEAN CORPUSCULAR HEMOGLOBIN 29.6 pg (28.0-32.0); MEAN CORPUSCULAR HGB CONC 34.7 g/dL (31.0-37.0); MEAN CORPUSCULAR VOLUME 85.4 fL (81.0-99.0); MEAN PLATELET VOLUME 8.3 fl (7.4-10.4); MONOCYTES % 4.2 % (2.0-8.0); NEUTROPHILS % 76.7 % (40.0-76.0); PLATELET 286 x1000/uL (130-400); RED CELL DISTRIBUTION WIDTH 13.4 % (11.6-14.6); WHITE BLOOD COUNT 11.7 x1000/uL (4.5-11.0)
[2025-01-23 01:18] LABS: CHLORIDE 102 mEq/L (98-107); POTASSIUM 3.7 mEq/L (3.5-5.1); SODIUM 137 mEq/L (136-145)
[2025-01-23 01:19] LABS: CALCIUM 9.2 mg/dL (8.7-10.4); CARBON DIOXIDE 26 mEq/L (21-32)
[2025-01-23] MEDS: MAGNESIUM 2 G PREMIX 50 ML IV ONE (01:21)
[2025-01-23] MEDS: DEXAMETHASONE 4MG/ML 1ML VIAL IV ONE (01:22)
[2025-01-23] MEDS: VALPROIC ACID 250MG CAPSULE PO ONE (01:22)
[2025-01-23 01:24] LABS: GLUCOSE 214 mg/dL (70-105)
[2025-01-23 01:25] LABS: ETHANOL BLOOD < 10 mg/dL (<10); UREA NITROGEN BLOOD 7 mg/dL (9-23)
[2025-01-23 01:31] LABS: PARTIAL THROMBOPLASTIN TIME 24.4 sec (23.4-31.0); PROTHROMBIN TIME 11.1 sec (9.6-11.0)
[2025-01-23 01:35] LABS: TROPONIN I HIGH SENSITIVITY < 4 ng/L (3.0-34)
[2025-01-23 02:56] VITALS: BP 130/82; PULSE 70; RESP 12; O2SAT 97
== END 2025-01-23 03:48 | disposition home or self-care (01) ==
LOC: ER 22:56 → CANBEDREQ 01-23 02:47 → ER 01-23 03:48
DX: R20.0 Anesthesia of skin (principal); M79.601 Pain in right arm; E11.9 Type 2 diabetes mellitus without complications; I10 Essential (primary) hypertension; Z79.4 Long term (current) use of insulin; Z79.84 Long term (current) use of oral hypoglycemic drugs; Z79.899 Other long term (current) drug therapy; Z88.0 Allergy status to penicillin; Z88.8 Allergy status to other drugs, medicaments and biological substances; Z90.710 Acquired absence of both cervix and uterus
CPT/HCPCS: 82962 ×2; 93005; 99291; 80048; 80320; 83880; 85025; 85610; 85730; 86850; 86900; 86901; 84484; 36415; 71045; 70450; 72125; 96365; 96375; J1100; J3475; Z7610; G0480